=== PATIENT | female | born 2000 | race Caucasian/White ===

== ENCOUNTER 2021-03-27 08:50 | Emergency (ER) | payer OTHER ==
[~2021-03-27] VITALS: Ht 165.1 cm; Wt 74.8 kg
[2021-03-27] MEDS ORDERED: AZITHROMYCIN250 MG PO (09:59)
== END 2021-03-27 10:15 | disposition home or self-care (01) ==
LOC: FSED 08:59
DX: J06.9 Acute upper respiratory infection, unspecified (principal); H69.93 Unspecified Eustachian tube disorder, bilateral; F41.9 Anxiety disorder, unspecified
CPT/HCPCS: 99282